=== PATIENT | female | born 1930 | race Caucasian/White ===

== ENCOUNTER 2018-07-02 10:12 | Emergency (ER) | payer MEDICARE ==
[~2018-07-02] VITALS: Ht 147.3 cm; Wt 60.3 kg
[2018-07-02] MEDS ORDERED: TETRACAINE HCL 0.5% OPHT DROP 2 ML BOTTLE OP ONE (10:30)
[2018-07-02] MEDS ORDERED: FLUORESCEIN SODIUM 1 MG STRIP OP ONE (10:30)
[2018-07-02] MEDS ORDERED: TETRACAINE HCL 0.5% OPHT DROP 2 ML BOTTLE ONE (10:37)
[2018-07-02] MEDS ORDERED: FLUORESCEIN SODIUM 1 MG STRIP ONE (10:38)
--- NOTE | 2018-07-02 10:58 | NUR ---
Patient discharged to home in stable conditon. Written and verbal after care instructions given. Patient verbalizes understanding of instructions.
== END 2018-07-02 11:07 | disposition home or self-care (01) ==
LOC: ER 10:12
DX: H10.31 Unspecified acute conjunctivitis, right eye (principal); I10 Essential (primary) hypertension; E78.5 Hyperlipidemia, unspecified; Z88.0 Allergy status to penicillin
CPT/HCPCS: A4663